=== PATIENT | female | born 1980 | race Caucasian/White ===

== ENCOUNTER → 2018-05-04 | Outpatient (CLI) | payer OTHER ==
[2018-05-04 17:04] LABS: HGB 12.6 gm/dL (11.4-16.0); MCH 30.2 pg (25.0-35.0); MCHC 31.4 g/dL (31.0-37.0); MCV 95.9 fL (80.0-100.0); Mean Platelet Volume 6.7; Platelet Count 315 k/uL (150-450); RBC 4.17 m/uL (3.80-5.40); RDW 13.2 % (11.5-15.5); WBC 13.2 k/uL (3.8-10.6)
[2018-05-04 17:24] LABS: Glucose 93 mg/dL (74-99)
== END | disposition home or self-care (01) ==
LOC: LABWHC1 16:38
PROVIDERS: ATTEND Obstetrics & Gynecology
DX: Z34.81 Encounter for supervision of other normal pregnancy, first trimester (principal)
CPT/HCPCS: 36415; 82565; 82947; 85027; 86762; 86780; 86850; 86870; 86880; 86886; 86900; 86901; 87340

== ENCOUNTER 2018-05-13 12:59 | Inpatient (IN) | payer OTHER, MEDICAID ==
[2018-05-13] MEDS ORDERED: ACETAMINOPHEN TAB 500 MG TAB PO STA (14:56)
[2018-05-13 15:21] LABS: Basophils # (A) 0.1 k/uL (0-0.2); Basophils % (A) 1 %; Eosinophils # (A) 0.4 k/uL (0-0.7); Eosinophils % (A) 4 %; HCT 38.3 % (34.0-46.0); HGB 12.9 gm/dL (11.4-16.0); Lymphocytes # (A) 2.6 k/uL (1.0-4.8); Lymphocytes % (A) 24 %; MCH 31.7 pg (25.0-35.0); MCHC 33.8 g/dL (31.0-37.0); MCV 93.8 fL (80.0-100.0); Mean Platelet Volume 6.9; Monocytes # (A) 0.6 k/uL (0-1.0); Monocytes % (A) 5 %; Neutrophils # (A) 7.1 k/uL (1.3-7.7); Neutrophils % (A) 65 %; Platelet Count 310 k/uL (150-450); RBC 4.08 m/uL (3.80-5.40); WBC 10.9 k/uL (3.8-10.6)
[2018-05-13 15:29] LABS: Anion Gap 8 mmol/L; Blood Urea Nitrogen 16 mg/dL (7-17); Calcium 9.2 mg/dL (8.4-10.2); Carbon Dioxide 24 mmol/L (22-30); Chloride 105 mmol/L (98-107); Glucose 90 mg/dL (74-99); Potassium 4.3 mmol/L (3.5-5.1); Sodium 137 mmol/L (137-145)
[2018-05-13 15:44] LABS: Amphetamine Screen,Urine Not Detected (NotDetected); Barbiturate Screen,Urine Not Detected (NotDetected); Benzodiazepines Screen,Urine Not Detected (NotDetected); Cocaine Screen,Urine Not Detected (NotDetected); Methadone Screen, Urine Not Detected (NotDetected); Opiate Screen,Urine Not Detected (NotDetected); Oxycodone Screen, Urine Not Detected (NotDetected); Phencyclidine Screen,Urine Not Detected (NotDetected); Tricyclic Antidepressant,Urine Not Detected (NotDetected); Urn Cannabinoid Scrn Not Detected (NotDetected)
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
[2018-05-13] MEDS ORDERED: ACETAMINOPHEN TAB 325 MG TAB PO PRN (19:30)
[2018-05-13] MEDS ORDERED: MAGNESIUM HYDROXIDE 2,400 MG/10 ML CUP PO PRN (19:30)
[2018-05-13] MEDS ORDERED: MAG HYDROX/AL HYDROX/SIMETH 30 ML CUP PO PRN (19:30)
[2018-05-13] MEDS: hydrOXYzine PAMOATE 25 MG CAP PO PRN (20:52)
[2018-05-13 21:39] LABS: Appearance,Urine Cloudy (Clear); Bilirubin,Urine Negative (Negative); Blood,Urine Negative (Negative); Color,Urine Yellow; Glucose,Urine (UA) Negative (Negative); Ketones,Urine Negative (Negative); Leukocyte Esterase,Urine Large (Negative); Mucus,Urine Occasional /hpf; Nitrite,Urine Negative (Negative); PH, Urine 5.5 (5.0-8.0); Protein,Urine Trace (Negative); RBC,Urine 3 /hpf (0-5); Specific Gravity,Urine 1.026 (1.001-1.035); Squamous Epithelial Cell,Urine 7 /hpf (0-4); Urobilinogen,Urine <2.0 mg/dL (<2.0); WBC,Urine 16 /hpf (0-5)
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
[2018-05-14 08:58] LABS: Anion Gap 8 mmol/L; Blood Urea Nitrogen 15 mg/dL (7-17); Carbon Dioxide 26 mmol/L (22-30); Chloride 103 mmol/L (98-107); Glucose 87 mg/dL (74-99); Potassium 4.3 mmol/L (3.5-5.1); Sodium 137 mmol/L (137-145)
[2018-05-14] MEDS ORDERED: PRENATAL VIT-IRON-FOLIC ACID 1 EACH CAP PO SCH (09:00)
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
--- NOTE | 2018-05-14 12:46 | US ---
EXAMINATION TYPE: Transabdominal DATE OF EXAM: 12/15/17 COMPARISON: NONE CLINICAL HISTORY: viability. Check viability EXAM PERFORMED: Transabdominal (TA) EXAM MEASUREMENTS: GESTATIONAL AGE / DATING Physician Established: Not yet established Dates by LMP: (12 weeks/2 days) EDC: 11/24/2018 Dates by First Scan: No previous this is first scan Dates by Current Scan for: (13 weeks/0 days) EDC: 11/19/2018 MATERNAL ANATOMY Uterus: 10.9 x 9.5 x 10.8 cm Right Ovary: 2.3 x 2.0 x 1.7 cm Left Ovary: 2.9 x 1.2 x 2.4 cm Post CDS / Adnexa: wnl Presence of free fluid: No Presence of corpus luteal cyst: Left Ovary= 1.4 x 1.4 x 1.6 cm Presence of subchorionic bleed: No GESTATION / SURVEY CRL: 6.8 cm (13 weeks/0 days) MSD: wnl Heart Rate: 147 bpm Rhythm: Normal IUP: Viable IUP Single, viable IUP, no abnormality seen at this time IMPRESSION: Single viable intrauterine of 12 weeks 2 days and an EDC of 11/19/2018. Heart rate 147 bpm.
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
[2018-05-14] MEDS: PRENATAL VIT-IRON-FOLIC ACID 1 EACH CAP PO SCH (20:51)
[2018-05-14] MEDS: hydrOXYzine PAMOATE 25 MG CAP PO PRN (20:52)
[2018-05-15] MEDS: hydrOXYzine PAMOATE 25 MG CAP PO PRN ×2 (09:28→22:27)
[2018-05-15] MEDS ORDERED: DOCUSATE 100 MG CAP PO PRN (15:14)
--- NOTE | 2018-05-15 19:36 | P.PN ---
Progress Note - Text Progress Note Date: 05/15/18 IDENTIFICATION DATA: Patient is a 38-year-old female who presented to the emergency room reporting she was having panic attacks, feeling overwhelmed, unable to make decisions. She is 13 weeks . She was prescribed Zoloft after her last and took it for the last 4 years and weaned off of it in July 2017. INTERVAL HISTORY: She reports today was a rough day. She states her is mad at her for being in the hospital. She reports feeling anxious and her lungs being fully expanded and having no room for fresh air. She states she is afraid of having a panic attack when she goes home. She currently states she doesnt feel like going home as she has seven kids at home and feels overwhelmed. Being in the hospital she states she does not have to make decisions and feels relaxed. She claims her is not supportive of her and is being another child at home. She also states her doesnt do what s being told but acts like a child. MENTAL STATUS EXAMINATION: The patient is alert and oriented 4 and in no apparent distress. Motor and speech behaviors are within normal limits. Mood is "okay" and affect is neutral with some range and reactivity. thought processes linear thought content is negative for suicidal or homicidal ideation. insight and judgment are limited. ASSESSMENT AND PLAN: no further changes at this time.
[2018-05-15] MEDS: PRENATAL VIT-IRON-FOLIC ACID 1 EACH CAP PO SCH (21:03)
[2018-05-16 12:12] VITALS: BMI 26.4
--- NOTE | 2018-05-16 17:38 | P.PN ---
Progress Note - Text Progress Note Date: 05/16/18 IDENTIFICATION DATA: Patient is a 38-year-old female who presented to the emergency room reporting she was having panic attacks, feeling overwhelmed, unable to make decisions. She is 13 weeks . She was prescribed Zoloft after her last and took it for the last 4 years and weaned off of it in July 2017. INTERVAL HISTORY: Patient reports her is hostile and uncooperative. She claims her has refused to attend family meeting. Patient reports she is worried about returning back to home and having a panic attack due to her current living situation at home. She claims her thinking is currently hay wire and feels that she will not be able to handle all the stress at home. She is currently asking to be started on Zoloft to help her with her anxiety . Discussed with the patient that decision to start her on Zoloft can be decided following the family meeting. She stated she sleeps well with vistaril. She reports good appetite. She denies current suicidal or homicidal ideations. No behavioral problems reported. She reports going to her groups. MENTAL STATUS EXAMINATION: Patient is 38 year old woman. She appeared her stated age in fair grooming and hygiene. Her mood is reported as anxious and affect constricted. Her speech and thought process are persevarative about her family dynamics. Denies auditory or visual hallucinations. thought content is negative for suicidal or homicidal ideation. insight and judgment are IMPROVING. The patient is alert and oriented 4 ASSESSMENT AND PLAN: no further changes at this time. Per obgyn consult it is okay for the patient to be started on SSRI. Discussed with the patient that decision to start her on Zoloft can be decided following the family meeting.
[2018-05-16] MEDS: PRENATAL VIT-IRON-FOLIC ACID 1 EACH CAP PO SCH (20:13)
[2018-05-16] MEDS: hydrOXYzine PAMOATE 25 MG CAP PO PRN (21:54)
[2018-05-17] MEDS: SERTRALINE 25 MG TAB PO SCH (12:12)
[2018-05-17] MEDS: hydrOXYzine PAMOATE 25 MG CAP PO PRN ×2 (13:43→23:28)
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
[2018-05-17] MEDS: PRENATAL VIT-IRON-FOLIC ACID 1 EACH CAP PO SCH (20:04)
[2018-05-18 06:45] VITALS: PULSE 77; RESP 16; TEMP 98.3
[2018-05-18 06:47] VITALS: BP 90/50
[2018-05-18] MEDS: SERTRALINE 25 MG TAB PO SCH (09:09)
[2018-05-18] MEDS: hydrOXYzine PAMOATE 25 MG CAP PO PRN (09:11)
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
== END 2018-05-18 17:28 | disposition home or self-care (01) | DRG 781 ==
LOC: EC 12:59 → 3MHU 19:18
PROVIDERS: ADMIT Psychiatry & Neurology Psychiatry; ATTEND Psychiatry & Neurology Psychiatry
DX: O99.341 Other mental disorders complicating pregnancy, first trimester (principal); F41.0 Panic disorder [episodic paroxysmal anxiety]; Z81.8 Family history of other mental and behavioral disorders; Z62.810 Personal history of physical and sexual abuse in childhood; O09.521 Supervision of elderly multigravida, first trimester; F43.10 Post-traumatic stress disorder, unspecified; H91.90 Unspecified hearing loss, unspecified ear; J45.909 Unspecified asthma, uncomplicated; O99.511 Diseases of the respiratory system complicating pregnancy, first trimester; Z3A.13 13 weeks gestation of pregnancy; Z90.81 Acquired absence of spleen; M19.92 Post-traumatic osteoarthritis, unspecified site; V49.9XXS Car occupant (driver) (passenger) injured in unspecified traffic accident, sequela
CPT/HCPCS: 36415; 76801; 80048; 80306; 81001; 81025; 82075; 84443; 85025; 99284

== ENCOUNTER 2018-10-30 21:48 | Outpatient (CLI) | payer OTHER ==
[2018-10-30 23:06] VITALS: BP 114/70; PULSE 97; RESP 15; TEMP 97.8
--- NOTE | 2018-10-31 10:58 | P.MSEPDOC ---
Presenting Problems - Arrival Data Date of Arrival on Unit: 10/30/18 Time of Arrival on Unit: 21:48 Mode of Transport: Ambulatory - Complaint OB-Reason for Admission/Chief Complaint: Possible Onset of Labor Comment: States the contractions increased in intensity within the past 2 hours Medical History - Information : 6 Para: 5 Term: 5 : 0 Abortions: Spontaneous or Elective: 0 Number of Living Children: 5 - Gestational Age Gestational Age by ANUEL (wks/days): 36 Weeks and 3 Days Review of Systems - Review of Systems Constitutional: No problems Breast: No problems ENT: No problems Cardiovascular: No problems Respiratory: No problems Gastrointestinal: No problems Genitourinary: No problems Musculoskeletal: No problems Neurological: No problems Skin: No problems Vital Signs - Temperature Temperature: 97.8 F Temperature Source: Temporal Artery Scan - Pulse Pulse Oximetery Pulse Rate: 97 Pulse Assessment Method: Automatic Cuff - Respirations Respiratory Rate: 15 Oxygen Delivery Method: Room Air - Blood Pressure Right Arm Blood Pressure: 114/70 Blood Pressure Mean: 84 Blood Pressure Source: Automatic Cuff Medical Screen Scoring (Pre) - Cervical Exam Dilation: 1-3 cm = 1 Effacement: More than 50% = 2 Membranes: Intact - Uterine Contractions Frequency: > 5 minutes apart = 1 Duration: N/A Intensity: N/A - Maternal Vital Signs Maternal Temperature: N/A Maternal Blood Pressure: N/A Signs of Preeclampsia: N/A Maternal Respirations: N/A - Pain Assessment Pain Location and Character: Abdomen Pain Scale Used: Numeric (1 - 10) Pain Intensity: 5 Pain Management Goal: 2 Pain Description: *Acute, Cramping Pain Radiation Location: none Pain Frequency: Intermittent Pain Duration: 20 Pain Duration Units: Minutes Pain Behavior: Facial Grimacing Pain Aggravating Factors: Contractions - Maternal Trauma Maternal Trauma: N/A - Assessment Baseline FHR: 125 Heart Rate - NICHD Category: Category I (Normal) = 0 NST: Reactive Position: N/A Station: N/A - Total Score Total Score (Pre): 4 - Level of Risk Level of Risk: Low (0-5) Physician Notification (Pre) - Physician Notified Physician Notified Date: 10/30/18 Physician Notified Time: 22:15 Physician/Practitioner Notifed:: Dr Caro New Order Received: Yes - Notification Comment Comment: Observe in triage and reevaluate in one hour Medical Screen Scoring (Post) - Cervical Exam Dilation: 1-3 cm = 1 Effacement: More than 50% = 2 Membranes: Intact - Uterine Contractions Frequency: > 5 minutes apart = 1 Duration: N/A Intensity: N/A - Maternal Vital Signs Maternal Temperature: N/A Maternal Blood Pressure: N/A Signs of Preeclampsia: N/A Maternal Respirations: N/A - Pain Assessment Pain Location and Character: Abdomen Pain Scale Used: Numeric (1 - 10) Pain Intensity: 5 Pain Management Goal: 2 Pain Description: *Acute, Cramping Pain Radiation Location: none Pain Frequency: Intermittent Pain Duration: 5 Pain Duration Units: Hours Pain Behavior: Facial Grimacing Pain Aggravating Factors: Contractions - Maternal Trauma Maternal Trauma: N/A - Assessment Heart Rate: 125 Heart Rate - NICHD Category: Category I (Normal) = 0 NST: Reactive Position: N/A Station: N/A - Total Score Total Score (Post): 4 - Post Treatment Level of Risk Post Treatment Level of Risk: Low (0-5) Disposition - Disposition OB Disposition: Discharge to home Discharge Date: 10/31/18 Discharge Time: 00:30 I agree with the RN Medical Screening Exam: Yes Risk & Benefit of care provided described in d/c instruction: Yes Diagnosis: FALSE LABOR BEFORE 37 COMPLETED WEEKS OF GEST, THIRD TRI
== END 2018-10-31 00:50 | disposition home or self-care (01) ==
LOC: FBPOP 21:48
PROVIDERS: ATTEND Obstetrics & Gynecology
DX: O47.03 False labor before 37 completed weeks of gestation, third trimester (principal); Z3A.36 36 weeks gestation of pregnancy
CPT/HCPCS: 59025; 99213

== ENCOUNTER 2018-11-03 16:21 | Inpatient (IN) | payer OTHER ==
[2018-11-03] MEDS ORDERED: LIDOCAINE 0.5% (PF) 5 MG/ML (50 ML SDV) SQ PRN (19:26)
[2018-11-03] MEDS ORDERED: OXYTOCIN 10 UNIT/ML 1 ML VIAL IM PRN (19:26)
[2018-11-03] MEDS ORDERED: CARBOPROST TROMETHAMINE 250 MCG/ML 1 ML AMP IM PRN (19:26)
[2018-11-03] MEDS ORDERED: METHYLERGONOVINE 0.2 MG/ML 1 ML AMP IM PRN (19:26)
[2018-11-03] MEDS ORDERED: TERBUTALINE 1 MG/ML VIAL SQ PRN (19:26)
[2018-11-03] MEDS ORDERED: LACTATED RINGERS 1,000 ML IV SCH (19:30)
[2018-11-03 19:38] VITALS: BMI 31.2
[2018-11-03] MEDS ORDERED: BUTORPHANOL 1 MG/ML 1 ML VIAL IV PRN (20:31)
[2018-11-03 20:39] LABS: Basophils % (A) 0 %; Eosinophils # (A) 0.2 k/uL (0-0.7); Eosinophils % (A) 1 %; HCT 42.1 % (34.0-46.0); HGB 13.6 gm/dL (11.4-16.0); Lymphocytes # (A) 2.8 k/uL (1.0-4.8); Lymphocytes % (A) 19 %; MCH 31.6 pg (25.0-35.0); MCHC 32.4 g/dL (31.0-37.0); MCV 97.7 fL (80.0-100.0); Mean Platelet Volume 8.2; Monocytes # (A) 0.7 k/uL (0-1.0); Monocytes % (A) 5 %; Neutrophils # (A) 10.8 k/uL (1.3-7.7); Neutrophils % (A) 73 %; Platelet Count 311 k/uL (150-450); RBC 4.31 m/uL (3.80-5.40); RDW 12.7 % (11.5-15.5); WBC 14.8 k/uL (3.8-10.6)
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
[2018-11-03] MEDS ORDERED: WITCH HAZEL 1 EACH MED..PAD TOPICAL PRN (22:28)
[2018-11-03] MEDS ORDERED: BENZOCAINE/MENTHOL SPRAY 1 GM/SPRAY AEROSOL TOPICAL PRN (22:28)
[2018-11-03] MEDS ORDERED: ZOLPIDEM 5 MG TAB PO PRN (22:28)
[2018-11-03] MEDS ORDERED: diphenhydrAMINE 50 MG/ML 1 ML VIAL IVP PRN ×2 (22:28)
[2018-11-03] MEDS ORDERED: SIMETHICONE 80 MG CHEWABLE PO PRN (22:28)
[2018-11-03] MEDS ORDERED: diphenhydrAMINE 25 MG CAP PO PRN (22:28)
[2018-11-03] MEDS ORDERED: ACETAMINOPHEN TAB 325 MG TAB PO PRN (22:28)
[2018-11-03] MEDS ORDERED: diphenhydrAMINE 50 MG CAP PO PRN (22:28)
[2018-11-03] MEDS ORDERED: HYDROCORTISONE 2.5% RECTAL CREAM 30 GM TUBE RECTAL PRN (22:28)
[2018-11-03] MEDS ORDERED: LANOLIN CREAM 5 GM TUBE TOPICAL PRN (22:28)
[2018-11-03] MEDS ORDERED: OXYTOCIN 20 UNITS/1000 ML NS 1,000 ML IV SCH (22:30)
[2018-11-04] MEDS: IBUPROFEN 600 MG TAB PO PRN ×3 (05:27→21:36)
[2018-11-04] MEDS: SENNOSIDES-DOCUSATE SODIUM 1 EACH TAB PO SCH ×2 (08:37→21:37)
--- NOTE | 2018-11-04 08:38 | P.MSEPDOC ---
Presenting Problems - Arrival Data Date of Arrival on Unit: 11/03/18 Time of Arrival on Unit: 19:30 Mode of Transport: Wheelchair - Complaint OB-Reason for Admission/Chief Complaint: Possible Onset of Labor Comment: regular, non painful contractions since last night with some spotting Medical History - Information : 6 Para: 5 Term: 5 : 0 Abortions: Spontaneous or Elective: 0 Number of Living Children: 5 - Gestational Age Gestational Age by ANUEL (wks/days): 37 Weeks and 0 Days - History Comment: pt states has Positive antibodie E blood type, also history of TIA with this Review of Systems - Review of Systems Constitutional: No problems Breast: No problems ENT: No problems Cardiovascular: No problems Respiratory: No problems Gastrointestinal: No problems Genitourinary: No problems Musculoskeletal: No problems Neurological: No problems Skin: No problems Vital Signs - Temperature Temperature: 99.1 F Temperature Source: Oral - Pulse Right Brachial Pulse Rate: 81 Pulse Assessment Method: Automatic Cuff - Respirations Respiratory Rate: 16 Oxygen Delivery Method: Room Air - Blood Pressure Right Arm Blood Pressure: 108/74 Blood Pressure Mean: 85 Blood Pressure Source: Automatic Cuff Left Arm Blood Pressure: 94/42 Blood Pressure Mean: 59 Blood Pressure Source: Automatic Cuff Medical Screen Scoring (Pre) - Cervical Exam Dilation: 1-3 cm = 1 Membranes: Intact - Uterine Contractions Frequency: > 5 minutes apart = 1 Duration: > 40 seconds = 2 Intensity: N/A - Maternal Vital Signs Maternal Temperature: N/A Maternal Blood Pressure: N/A Signs of Preeclampsia: N/A Maternal Respirations: N/A - Pain Assessment Pain Location and Character: Abdomen Pain Scale Used: Numeric (1 - 10) Pain Intensity: 2 Pain Description: *Acute, Tightness Pain Frequency: Intermittent Pain Duration: 1 Pain Duration Units: Days Pain Behavior: None Exhibited Pain Aggravating Factors: Contractions - Maternal Trauma Maternal Trauma: N/A - Assessment Baseline FHR: 130 Heart Rate - NICHD Category: Category I (Normal) = 0 NST: Reactive - Total Score Total Score (Pre): 4 - Level of Risk Level of Risk: Low (0-5) Medical Screen Scoring (Post) - Cervical Exam Dilation: 4-7 cm = 2 Effacement: More than 50% = 2 - Uterine Contractions Frequency: > or = 36 weeks =2 Duration: > 40 seconds = 2 Intensity: N/A - Total Score Total Score (Post): 8 - Post Treatment Level of Risk Post Treatment Level of Risk: Medium (6-9) Physician Notification (Post) - Physician Notified Physician Notified Date: 11/03/18 Physician Notified Time: 19:17 Spoke With: Frankie Branch Order Received: Yes (admit for labor) Disposition - Disposition OB Disposition: Admit, LDRP Suite I agree with the RN Medical Screening Exam: Yes Risk & Benefit of care provided described in d/c instruction: Yes Diagnosis: ENCOUNTER FOR FULL-TERM UNCOMPLICATED DELIVERY
--- NOTE | 2018-11-04 09:28 | P.PNOBGVD ---
Subjective - Subjective Principal diagnosis: S/P NVD PPD #1 Interval history: Pt seen and examined. Denies N/V, F/C, CP, SOB, calf pain. Patient reports: Reports appetite normal, Reports voiding normally, Reports pain well controlled, Reports ambulating normally : doing well Objective - Latest Vital Signs Latest vital signs: Vital Signs Temp Pulse Resp BP BP 11/04/18 08:38 99.1 F 81 16 94/42 108/74 11/04/18 08:00 98 F 91 16 99/74 11/04/18 04:00 99.1 F 81 16 94/42 11/04/18 00:23 98.0 F 92 16 103/60 11/03/18 23:53 91 18 107/62 11/03/18 23:23 107 H 16 103/57 11/03/18 23:08 99 16 101/55 11/03/18 22:59 99 16 101/60 11/03/18 22:44 99 16 100/59 11/03/18 22:29 98.7 F 115 H 16 111/62 11/03/18 17:16 97.2 F L 96 16 108/74 Intake and Output 11/03/18 11/04/18 11/04/18 22:59 06:59 14:59 Other: # Voids 0 1 Weight 82.554 kg - Exam Lungs: bilateral: normal Chest: Normal S1, Normal S2 Extremities: Present: normal Abdomen: Present: normal appearance, soft Uterus: Present: normal, firm - Labs Labs: Abnormal Lab Results - Last 24 Hours (Table) 11/03/18 Range/Units 19:45 WBC 14.8 H (3.8-10.6) k/uL Neutrophils # 10.8 H (1.3-7.7) k/uL Assessment and Plan (1) Normal labor Current Visit: No Status: Resolved Code(s): O80 - ENCOUNTER FOR FULL-TERM UNCOMPLICATED DELIVERY SNOMED Code(s): 27515406 (2) Normal vaginal delivery Current Visit: Yes Status: Acute Code(s): O80 - ENCOUNTER FOR FULL-TERM UNCOMPLICATED DELIVERY SNOMED Code(s): 63598032 Plan: 1. cont pp care
[2018-11-05] MEDS: IBUPROFEN 600 MG TAB PO PRN ×3 (04:29→18:27)
[2018-11-05] MEDS: SENNOSIDES-DOCUSATE SODIUM 1 EACH TAB PO SCH ×2 (07:52→21:07)
[2018-11-05 16:21] VITALS: BP 106/67; PULSE 75; RESP 17; TEMP 98.7
--- NOTE | 2018-11-10 08:18 | P.PROBDLV ---
Vaginal Delivery Note - . Vaginal Delivery Note: 38-year-old presented at 37 weeks in active labor. Her cervix was 6 cm dilated, 80% effaced, -2 station. Syl every 2-4 minutes. heart tones 130 135 with moderate variability and reactive. Amniotomy was performed at 20/, clear fluid noted. Her cervix was completely dilated at 2212, she pushed, delivered a viable female infant over intact perineum at 2219. Head delivered OA, anterior shoulder delivered gentle downward guidance followed by posterior shoulder and rest of body. Nose and mouth bulb suctioned, cord clamped and cut, infant placed mother's abdomen. Placenta delivered spontaneously intact with three-vessel cord at 2223. Vagina, cervix, perineum inspected. No lacerations noted. Estimated blood loss 150 mL. Mother and baby in stable condition.
--- NOTE | 2018-11-16 14:53 | P.DS ---
Providers Date of admission: 11/03/18 19:20 Expected date of discharge: 11/05/18 Attending physician: Sandra David Primary care physician: Stated None - Discharge Diagnosis(es) (1) Normal vaginal delivery Status: Acute Hospital Course: Pt presented in labor. She underwent a normal vaginal delivery. HEr pp course was uncomplicated. She will be discharged home PPD #2 in stable condition to follow up with me in 6 weeks. Patient Condition at Discharge: Stable Plan - Discharge Summary New Discharge Prescriptions: No Action Jeq-Fbtf-Upwex Acid [-U Capsule (formulary)] 1 each PO DAILY Discharge Medication List Flc-Yzqv-Kyjqb Acid [-U Capsule (formulary)] 1 each PO DAILY [History] Follow up Appointment(s)/Referral(s): Sandra David DO [Doctor of Osteopathic Medicine] - Discharge Disposition: HOME SELF-CARE
== END 2018-11-05 20:40 | disposition home or self-care (01) | DRG 807 ==
LOC: FBPOP 16:21 → 4FBP 19:20
PROVIDERS: ADMIT Obstetrics & Gynecology; ATTEND Obstetrics & Gynecology
PROC: 10E0XZZ Delivery of Products of Conception, External Approach (ICD-10-PCS; principal; 2018-11-03)
PROC: 10907ZC Drainage of Amniotic Fluid, Therapeutic from Products of Conception, Via Natural or Artificial Opening (ICD-10-PCS; 2018-11-03)
DX: O43.123 Velamentous insertion of umbilical cord, third trimester (principal); Z37.0 Single live birth; J45.909 Unspecified asthma, uncomplicated; O99.52 Diseases of the respiratory system complicating childbirth; H91.90 Unspecified hearing loss, unspecified ear; M19.90 Unspecified osteoarthritis, unspecified site; F43.10 Post-traumatic stress disorder, unspecified; O99.344 Other mental disorders complicating childbirth; Z3A.37 37 weeks gestation of pregnancy; Z90.81 Acquired absence of spleen; Z80.9 Family history of malignant neoplasm, unspecified; Z90.49 Acquired absence of other specified parts of digestive tract
CPT/HCPCS: 59025; 85025; 86850; 86870; 86880; 86900; 86901; 88307; 99213